=== PATIENT | male | born 1985 | race Caucasian/White ===

== ENCOUNTER 2019-03-29 22:57 | Emergency (ER) | payer MEDICAID, SELFPAY ==
[2019-03-29 23:00] VITALS: BP 100/62; PULSE 149; RESP 22; TEMP 37.3; O2SAT 94; BMI 48.8
--- NOTE | 2019-03-29 23:10 | ECG_ITS ---
Measurements Intervals [facility] Rate: 149 P: 57 MT: 143 QRS: -12 QRSD: 82 T: 42 QT: 282 QTc: 445 SINUS TACHYCARDIA, POSSIBLE ATRIAL FLUTTER LOW QRS VOLTAGE IN PRECORDIAL LEADS [QRS DEFLECTION < 1.0 mV IN CHEST LEADS] PATTERN CONSISTENT WITH PULMONARY DISEASE No previous ECG available for comparison Electronically Signed On 03-30-2019 17:13:28 SPOT CHECKER by Eileen Pavon M.D. [email or web address]
--- NOTE | 2019-03-29 23:18 | PC.NURSE ---
Patients blood glucose at the time of triage 370.
[2019-03-30 03:06] LABS: Glucose Point of Care 370 mg/dL (70-110)
== END 2019-03-30 00:45 | disposition home or self-care (01) ==
LOC: ER 23:15
PROVIDERS: Emergency Provider Emergency Medicine
DX: Z53.21 Procedure and treatment not carried out due to patient leaving prior to being seen by health care provider (principal)
CPT/HCPCS: 36416; 82962; 93005; 99281